=== PATIENT | female | born 1990 | race Caucasian/White ===

== ENCOUNTER 2016-05-04 11:07 | Emergency (ER) | payer SELFPAY ==
[2016-05-04 12:09] VITALS: BP 126/64
--- NOTE | 2016-05-04 13:21 | UC ---
Skin Complaint HPI - HPI Summary HPI Summary: pt presents with c/o right hand pain s/p spilling hot coffee at work on dorsal side of right in between thumb and index finger. Pt immediate rinsed hand in cool water and applied cool compress. Pt reports that she is UTD with Tetanus vaccine. - History of Current Complaint Chief Complaint: UCBurn Time Seen by Provider: 05/04/16 12:53 Stated Complaint: HOT WATER BURN RIGHT HAND Hx Obtained From: Patient Hx Last Menstrual Period: 04/20/16 ?: No Onset/Duration: Sudden Onset Skin Exposure Onset/Duration: Hours Ago - 1 hour ago Timing: Constant Onset Severity: Mild Current Severity: Mild Location: Discrete - right hand, Hand (Right) Character: Exposure to Heat Intermittent, Redness, Painful Aggravating: Touch Alleviating: Cold Compresses Associated Signs & Symptoms: Positive: Tenderness Related History: Other: - hot coffee spillef on rigt hand - Allergy/Home Medications Allergies/Adverse Reactions: Allergies Allergy/AdvReac Type Severity Reaction Status Date / Time Lamotrigine [From Lamictal] Allergy Rash Verified 05/04/16 12:00 Sulfamethoxazole Allergy Rash Verified 05/04/16 12:00 w/Trimethoprim [From Bactrim] Home Medications: Home Medications Aripiprazole [Abilify] 1 tab PO DAILY 05/04/16 [History Confirmed 05/04/16] Ibuprofen [Advil] 800 mg PO Q6HR PRN 05/04/16 [History Confirmed 05/04/16] Lisdexamfetamine Dimesylate [Vyvanse] 1 tab PO DAILY 05/04/16 [History Confirmed 05/04/16] OXcarbazepine TAB(*) [Trileptal TAB(*)] 2 tab PO DAILY 05/04/16 [History Confirmed 05/04/16] Review of Systems Constitutional: Negative Skin: Other - burn to right hand Eyes: Negative ENT: Negative Respiratory: Negative Cardiovascular: Negative Gastrointestinal: Negative Genitourinary: Negative Motor: Negative, Other - tenderness with ROM secondary to burn full ROm intact Neurovascular: Negative Musculoskeletal: Negative Neurological: Negative Psychological: Negative All Other Systems Reviewed And Are Negative: Yes PMH/Surg Hx/FS Hx/Imm Hx Previously Healthy: Yes - Surgical History Surgical History: Yes Surgery Procedure, Year, and Place: [place] 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 - Family History Known Family History: Positive: Other - Positve [facility] for URI - Social History Alcohol Use: Occasionally Substance Use Type: Marijuana Substance Use Comment - Amount & Last Used: Rarely Smoking Status (MU): Heavy Every Day Tobacco Smoker Amount Used/How Often: 1/2ppd Household Exposure Type: Cigarettes Physical Exam Triage Information Reviewed: Yes Appearance: Well-Appearing Vital Signs: Initial Vital Signs Temp 98.4 F 05/04/16 12:02 Pulse 75 05/04/16 12:02 Resp 14 05/04/16 12:02 BP 126/64 05/04/16 12:02 Pulse Ox 100 05/04/16 12:02 Vital Signs Reviewed: Yes Respiratory Exam: Normal Musculoskeletal Exam: Normal Neurological Exam: Normal Psychological Exam: Normal Skin Exam: Other - mild erythema to right hand measuring 11cm X 5 cm dorsal side of right hand from area of right thumb to right 4th finger. No blisters. skin intact. mild tenderness Course/Dx - Differential Diagnoses - Skin Complaint Differential Diagnoses: Other - first degree burn. - Diagnoses Provider Diagnoses: first degree burn right hand. Discharge - Discharge Plan Condition: Stable Disposition: HOME Prescriptions: Cephalexin CAP* [Keflex 500 CAP*] 500 mg PO Q12H #10 cap Patient Education Materials: Superficial Burn (ED), Acute Wound Care (ED) Referrals: [facility] [place] [facility] [Outside] No Primary Care Phys,NOPCP [Primary Care Provider] - Additional Instructions: Please establish care with a PCP. We have provided a referral number for you to use to establish care with a PCP.
== END 2016-05-04 13:17 | disposition home or self-care (01) ==
LOC: UCCORT 11:07
DX: T23.161A Burn of first degree of back of right hand, initial encounter (principal); T31.0 Burns involving less than 10% of body surface; X10.0XXA Contact with hot drinks, initial encounter; F17.210 Nicotine dependence, cigarettes, uncomplicated; Z88.2 Allergy status to sulfonamides; Z88.8 Allergy status to other drugs, medicaments and biological substances
CPT/HCPCS: 99212; G0463

== ENCOUNTER 2016-06-09 18:05 | Emergency (ER) | payer BC ==
[2016-06-09 18:19] VITALS: BP 130/71
--- NOTE | 2016-06-09 18:29 | UC ---
Eye Complaint HPI - HPI Summary HPI Summary: for the past several hours has had a very itchy right eye with scant drainage. No photophobia. - History of Current Complaint Stated Complaint: PINK EYE RIGHT Time Seen by Provider: 06/09/16 18:12 Hx Obtained From: Patient Hx Last Menstrual Period: 05/25/16 ?: No Onset/Duration: Sudden Onset, Lasting Hours Timing: Constant Severity Initially: Moderate Severity Currently: Moderate Location of Injury: Conjunctiva Character: Dull Aggravating Factor(s): Nothing Alleviating Factor(s): Nothing Associated Signs And Symptoms: Positive: Negative - Risk Factors Penetrating Injury Risk Factor: Negative Globe Rupture Risk Factors: Negative Acute Glaucoma Risk Factors: Negative Optic Artery Occlusion Risk Factors: Negative - Allergies/Home Medications Allergies/Adverse Reactions: Allergies Allergy/AdvReac Type Severity Reaction Status Date / Time Lamotrigine [From Lamictal] Allergy Rash Verified 06/09/16 18:20 Sulfamethoxazole Allergy Rash Verified 06/09/16 18:20 w/Trimethoprim [From Bactrim] PMH/Surg Hx/FS Hx/Imm Hx - Additional Past Medical History Additional PMH: Obesity Previously Healthy: Yes - Surgical History Surgical History: Yes Surgery Procedure, Year, and Place: [place] Teeth Extraction. Glomus tumor. T& A. Barthon gland absess - Family History Known Family History: Positive: Other - thyroid disease in mother--hypothyroid - Social History Occupation: Employed Full-time Alcohol Use: Occasionally Substance Use Type: Marijuana Substance Use Comment - Amount & Last Used: Rarely Smoking Status (MU): Heavy Every Day Tobacco Smoker Amount Used/How Often: 1/2ppd Household Exposure Type: Cigarettes Review of Systems Constitutional: Negative Skin: Negative Eyes: Blurred Vision, Drainage ENT: Negative Respiratory: Negative Cardiovascular: Negative Gastrointestinal: Negative Genitourinary: Negative Motor: Negative Neurovascular: Negative Musculoskeletal: Negative Neurological: Negative Psychological: Negative All Other Systems Reviewed And Are Negative: Yes Physical Exam Triage Information Reviewed: Yes Appearance: Well-Appearing Vital Signs: Initial Vital Signs Temp 98.2 F 06/09/16 18:10 Pulse 93 06/09/16 18:10 Resp 16 06/09/16 18:10 BP 130/71 06/09/16 18:10 Pulse Ox 100 06/09/16 18:10 Eyes: Positive: Conjunctiva Inflamed - right conjunctival inflammation ENT: Positive: Pharynx normal, TMs normal Dental Exam: Normal Neck exam: Normal Respiratory: Positive: Chest non-tender, Lungs clear Cardiovascular: Positive: RRR, No Murmur Neurological Exam: Normal Psychological Exam: Normal Skin Exam: Normal Eye Complaint Course/Dx - Course Course Of Treatment: opthalmic drops for conjunctivitis - Differential Dx/Diagnosis Differential Diagnosis/HQI/PQRI: Conjunctivitis Provider Diagnoses: conjunctivitis Discharge - Discharge Plan Condition: Stable Disposition: HOME Patient Education Materials: Conjunctivitis (ED) Additional Instructions: Today, use 2 drops to the right eye every 2 hours today, and compress the eyes. Please also treat the left eye to prevent the infection spreading to that side; every other time is ok.
[2016-06-09] MEDS ORDERED: Tobramycin 0.3% OPHTH.SOL* 5 ML BOT (regular eye drops) RIGHT EYE ONE (18:38)
== END 2016-06-09 19:00 | disposition home or self-care (01) ==
LOC: UCCORT 18:05
DX: H10.9 Unspecified conjunctivitis (principal); F17.210 Nicotine dependence, cigarettes, uncomplicated; Z88.2 Allergy status to sulfonamides; Z88.8 Allergy status to other drugs, medicaments and biological substances
CPT/HCPCS: 99212; A9270-GY; G0463